=== PATIENT | male | born 1965 | race Caucasian/White ===

== ENCOUNTER → 2016-08-28 | Outpatient (REF) | payer BC ==
[2016-08-28 11:40] LABS: ALBUMIN 4.1 GM/DL (3.2-5.2); ALBUMIN/GLOBULIN RATIO 1.52 (1.00-1.93); ALKALINE PHOSPHATASE 59 U/L (45-117); ALT/SGPT 112 U/L (12-78); ANION GAP 8 MEQ/L (8-16); AST/SGOT 52 U/L (15-37); BILIRUBIN,TOTAL 0.8 MG/DL (0.2-1.0); BLOOD UREA NITROGEN 20 MG/DL (7-18); CALCIUM LEVEL 8.7 MG/DL (8.5-10.1); CARBON DIOXIDE LEVEL 25 MEQ/L (21-32); CHLORIDE LEVEL 107 MEQ/L (98-107); CHOLESTEROL LEVEL 147 MG/DL (<200); CREATININE FOR GFR 0.86 MG/DL (0.70-1.30); GLOMERULAR FILTRATION RATE > 60.0 (>56); GLUCOSE, FASTING 114 MG/DL (70-105); POTASSIUM SERUM 4.4 MEQ/L (3.5-5.1); SODIUM LEVEL 140 MEQ/L (136-145); TOTAL PROTEIN 6.8 GM/DL (6.4-8.2); TRIGLYCERIDES LEVEL 102 MG/DL (<150)
== END ==
LOC: M LABDRAW1 11:11
PROVIDERS: ATTEND Physician Assistant
DX: I25.10 Atherosclerotic heart disease of native coronary artery without angina pectoris (principal); I10 Essential (primary) hypertension; E78.00 Pure hypercholesterolemia, unspecified

== ENCOUNTER → 2016-08-28 | Outpatient (REF) | payer BC | LOC: M SFHCCLAY 07:07 | PROVIDERS: ATTEND Nurse Practitioner | DX: I10 Essential (primary) hypertension (principal); Z12.5 Encounter for screening for malignant neoplasm of prostate | CPT/HCPCS: 83036; G0103 ==

== ENCOUNTER → 2017-03-23 | Outpatient (REF) | payer BC ==
[2017-03-23 11:40] LABS: MEAN CORPUSCULAR HEMOGLOBIN 31.8 pg (27.0-33.0); MEAN CORPUSCULAR HGB CONC 34.5 g/dl (32.0-36.5); MEAN CORPUSCULAR VOLUME 92.3 fl (80.0-96.0); PLATELET COUNT, AUTOMATED 204 10^3/uL (150-450); WHITE BLOOD COUNT 6.8 10^3/uL (4.0-10.0)
[2017-03-23 12:29] LABS: ALBUMIN 4.1 GM/DL (3.2-5.2); ALBUMIN/GLOBULIN RATIO 1.41 (1.00-1.93); ALKALINE PHOSPHATASE 58 U/L (45-117); ALT/SGPT 75 U/L (12-78); ANION GAP 7 MEQ/L (8-16); AST/SGOT 33 U/L (7-37); BILIRUBIN,TOTAL 0.4 MG/DL (0.2-1.0); BLOOD UREA NITROGEN 21 MG/DL (7-18); CARBON DIOXIDE LEVEL 27 MEQ/L (21-32); CHLORIDE LEVEL 105 MEQ/L (98-107); GLOMERULAR FILTRATION RATE > 60.0 (>56); GLUCOSE, FASTING 115 MG/DL (70-105); POTASSIUM SERUM 4.7 MEQ/L (3.5-5.1); SODIUM LEVEL 139 MEQ/L (136-145)
== END ==
LOC: M LABDRAWC 11:27
PROVIDERS: ATTEND Physician Assistant
DX: I25.10 Atherosclerotic heart disease of native coronary artery without angina pectoris (principal); I10 Essential (primary) hypertension; E78.00 Pure hypercholesterolemia, unspecified

== ENCOUNTER → 2017-09-01 | Outpatient (REF) | payer BC ==
[2017-09-01 11:38] LABS: HEMATOCRIT 43.3 % (42.0-52.0); HEMOGLOBIN 14.9 g/dl (13.5-17.5); MEAN CORPUSCULAR HEMOGLOBIN 32.3 pg (27.0-33.0); MEAN CORPUSCULAR HGB CONC 34.4 g/dl (32.0-36.5); MEAN CORPUSCULAR VOLUME 93.7 fl (80.0-96.0); PLATELET COUNT, AUTOMATED 170 10^3/uL (150-450); RED BLOOD COUNT 4.62 10^6/uL (4.30-6.10); RED CELL DISTRIBUTION WIDTH 12.2 % (11.5-14.5)
[2017-09-01 11:58] LABS: ALBUMIN/GLOBULIN RATIO 1.43 (1.00-1.93); ALKALINE PHOSPHATASE 68 U/L (45-117); ALT/SGPT 138 U/L (12-78); ANION GAP 5 MEQ/L (8-16); AST/SGOT 57 U/L (7-37); BILIRUBIN,TOTAL 0.4 MG/DL (0.2-1.0); BLOOD UREA NITROGEN 20 MG/DL (7-18); CALCIUM LEVEL 9.2 MG/DL (8.5-10.1); CARBON DIOXIDE LEVEL 27 MEQ/L (21-32); CHLORIDE LEVEL 108 MEQ/L (98-107); CHOLESTEROL LEVEL 132 MG/DL (<200); CHOLESTEROL RISK RATIO 4.125 (<5); GLOMERULAR FILTRATION RATE > 60.0 (>56); GLUCOSE, FASTING 114 MG/DL (70-100); HDL CHOLESTEROL 32 MG/DL (>40); NON-HDL-C 100 MG/DL; POTASSIUM SERUM 4.5 MEQ/L (3.5-5.1); SODIUM LEVEL 140 MEQ/L (136-145); TOTAL PROTEIN 6.8 GM/DL (6.4-8.2); TRIGLYCERIDES LEVEL 150 MG/DL (<150)
[2017-09-01 12:22] LABS: ESTIMATED AVERAGE GLUCOSE 123 MG/DL (60-110); HEMOGLOBIN A1c 5.9 %
== END ==
LOC: M SFHCCLAY 06:58
DX: I25.10 Atherosclerotic heart disease of native coronary artery without angina pectoris (principal); K21.0 Gastro-esophageal reflux disease with esophagitis; R73.01 Impaired fasting glucose
CPT/HCPCS: 80053

== ENCOUNTER → 2018-02-24 | Outpatient (REF) | payer BC ==
[2018-02-24 11:49] LABS: HEMOGLOBIN 15.1 g/dl (13.5-17.5); MEAN CORPUSCULAR HEMOGLOBIN 32.3 pg (27.0-33.0); MEAN CORPUSCULAR HGB CONC 33.6 g/dl (32.0-36.5); MEAN CORPUSCULAR VOLUME 96.2 fl (80.0-96.0); PLATELET COUNT, AUTOMATED 177 10^3/uL (150-450); RED BLOOD COUNT 4.68 10^6/uL (4.30-6.10); WHITE BLOOD COUNT 7.3 10^3/uL (4.0-10.0)
[2018-02-24 12:19] LABS: ALBUMIN 3.9 GM/DL (3.2-5.2); ALBUMIN/GLOBULIN RATIO 1.56 (1.00-1.93); ALKALINE PHOSPHATASE 67 U/L (45-117); ALT/SGPT 109 U/L (12-78); ANION GAP 6 MEQ/L (8-16); AST/SGOT 49 U/L (7-37); BILIRUBIN,TOTAL 0.4 MG/DL (0.2-1.0); BLOOD UREA NITROGEN 20 MG/DL (7-18); CARBON DIOXIDE LEVEL 27 MEQ/L (21-32); CHLORIDE LEVEL 106 MEQ/L (98-107); CHOLESTEROL LEVEL 158 MG/DL (<200); CHOLESTEROL RISK RATIO 4.388 (<5); CREATININE FOR GFR 0.89 MG/DL (0.70-1.30); FREE T4 0.83 NG/DL (0.76-1.46); GLOMERULAR FILTRATION RATE > 60.0 (>56); GLUCOSE, FASTING 120 MG/DL (70-100); HDL CHOLESTEROL 36 MG/DL (>40); LDL CHOLESTEROL 92 MG/DL (<100); NON-HDL-C 122 MG/DL; POTASSIUM SERUM 4.7 MEQ/L (3.5-5.1); SODIUM LEVEL 139 MEQ/L (136-145); TOTAL PROTEIN 6.4 GM/DL (6.4-8.2); TRIGLYCERIDES LEVEL 149 MG/DL (<150)
[2018-02-24 12:40] LABS: ESTIMATED AVERAGE GLUCOSE 123 MG/DL (60-110); HEMOGLOBIN A1c 5.9 %
[2018-02-24 13:05] LABS: MALB URINE SIEMENS 77.2 MG/L; MAU/CREAT RATIO 59.8 MCG/MG (0.0-30.0)
== END ==
LOC: M SFHCCLAY 07:02
DX: E11.9 Type 2 diabetes mellitus without complications (principal); I25.10 Atherosclerotic heart disease of native coronary artery without angina pectoris; K21.0 Gastro-esophageal reflux disease with esophagitis; I10 Essential (primary) hypertension; E78.5 Hyperlipidemia, unspecified
CPT/HCPCS: 84443

== ENCOUNTER → 2018-09-16 | Outpatient (REF) | payer BC ==
[~2018-09-16] MED LIST: ASPI81TA85 PO; ATOR1TAB21 PO; FLUTISP; METF500T13 PO; NITR0.4S14 SL; OMEP20CA3 PO; RAMI1CAP26 PO; TOPR50TA PO; VALA1TAB2 PO
[2018-09-16 11:38] LABS: BLOOD UREA NITROGEN 20 MG/DL (7-18); CALCIUM LEVEL 9.2 MG/DL (8.5-10.1); CARBON DIOXIDE LEVEL 28 MEQ/L (21-32); CHLORIDE LEVEL 104 MEQ/L (98-107); CREATININE FOR GFR 0.96 MG/DL (0.70-1.30); GLOMERULAR FILTRATION RATE > 60.0 (>56); GLUCOSE, FASTING 107 MG/DL (70-100); POTASSIUM SERUM 4.4 MEQ/L (3.5-5.1); SODIUM LEVEL 140 MEQ/L (136-145)
== END ==
LOC: M LABDRAWC 11:14
PROVIDERS: ATTEND Physician Assistant
DX: E78.00 Pure hypercholesterolemia, unspecified (principal)

== ENCOUNTER → 2019-03-14 | Outpatient (REF) | payer BC ==
[~2019-03-14] MED LIST changes: -OMEP20CA3 PO; +OMEP20CA4 PO
[2019-03-14 12:42] LABS: HEMATOCRIT 45.9 % (42.0-52.0); HEMOGLOBIN 15.7 g/dl (13.5-17.5); MEAN CORPUSCULAR HEMOGLOBIN 32.4 pg (27.0-33.0); MEAN CORPUSCULAR HGB CONC 34.2 g/dl (32.0-36.5); MEAN CORPUSCULAR VOLUME 94.6 fl (80.0-96.0); PLATELET COUNT, AUTOMATED 188 10^3/uL (150-450); RED BLOOD COUNT 4.85 10^6/uL (4.30-6.10); WHITE BLOOD COUNT 8.2 10^3/uL (4.0-10.0)
[2019-03-14 12:51] LABS: ALBUMIN 3.9 GM/DL (3.2-5.2); ALT/SGPT 108 U/L (12-78); BILIRUBIN,TOTAL 0.8 MG/DL (0.2-1.0); BLOOD UREA NITROGEN 19 MG/DL (7-18); CALCIUM LEVEL 9.1 MG/DL (8.5-10.1); CARBON DIOXIDE LEVEL 26 MEQ/L (21-32); CHLORIDE LEVEL 105 MEQ/L (98-107); CHOLESTEROL LEVEL 177 MG/DL (<200); CHOLESTEROL RISK RATIO 4.425 (<5); CREATININE FOR GFR 1.07 MG/DL (0.70-1.30); GLOMERULAR FILTRATION RATE > 60.0 (>56); GLUCOSE, FASTING 131 MG/DL (70-100); HDL CHOLESTEROL 40 MG/DL (>40); LDL CHOLESTEROL 102 MG/DL (<100); NON-HDL-C 137 MG/DL; POTASSIUM SERUM 4.7 MEQ/L (3.5-5.1); SODIUM LEVEL 139 MEQ/L (136-145); TRIGLYCERIDES LEVEL 174 MG/DL (<150)
[2019-03-14 13:18] LABS: MALB URINE SIEMENS 52.9 MG/L; MAU/CREAT RATIO 24.2 MCG/MG (0.0-30.0)
[2019-03-14 13:58] LABS: HEMOGLOBIN A1c 6.1 %
== END ==
LOC: M SFHCCLAY 07:00
PROVIDERS: ATTEND Nurse Practitioner Family
DX: I25.10 Atherosclerotic heart disease of native coronary artery without angina pectoris (principal); K21.0 Gastro-esophageal reflux disease with esophagitis; I10 Essential (primary) hypertension; E78.5 Hyperlipidemia, unspecified; E11.9 Type 2 diabetes mellitus without complications

== ENCOUNTER → 2019-09-21 | Outpatient (REF) | payer BC ==
[~2019-09-21] MED LIST changes: +OMEP1CAP73 PO; -OMEP20CA4 PO; -VALA1TAB2 PO; +VALA1TAB5 PO
[2019-09-21 16:39] LABS: ALBUMIN 3.9 GM/DL (3.2-5.2); ALT/SGPT 127 U/L (12-78); BILIRUBIN,TOTAL 0.7 MG/DL (0.2-1.0); BLOOD UREA NITROGEN 15 MG/DL (7-18); CARBON DIOXIDE LEVEL 28 MEQ/L (21-32); CHLORIDE LEVEL 105 MEQ/L (98-107); CHOLESTEROL LEVEL 164 MG/DL (<200); CHOLESTEROL RISK RATIO 4.432 (<5); CREATININE FOR GFR 0.91 MG/DL (0.70-1.30); FREE T4 0.93 NG/DL (0.76-1.46); GLOMERULAR FILTRATION RATE > 60.0 (>56); GLUCOSE, FASTING 125 MG/DL (70-100); HDL CHOLESTEROL 37 MG/DL (>40); LDL CHOLESTEROL 104 MG/DL (<100); NON-HDL-C 127 MG/DL; POTASSIUM SERUM 4.5 MEQ/L (3.5-5.1); SODIUM LEVEL 139 MEQ/L (136-145); TOTAL PROTEIN 6.9 GM/DL (6.4-8.2); TRIGLYCERIDES LEVEL 117 MG/DL (<150)
[2019-09-21 17:34] LABS: HEMOGLOBIN A1c 6.4 %
== END ==
LOC: M SFHCCLAY 08:05
PROVIDERS: ATTEND Nurse Practitioner Family
DX: I25.10 Atherosclerotic heart disease of native coronary artery without angina pectoris (principal); K21.0 Gastro-esophageal reflux disease with esophagitis; I10 Essential (primary) hypertension; E78.5 Hyperlipidemia, unspecified; E11.9 Type 2 diabetes mellitus without complications

== ENCOUNTER → 2020-03-21 | Outpatient (REF) | payer BC ==
[~2020-03-21] MED LIST changes: -ASPI81TA85 PO; +ASPI81TA86 PO
[2020-03-21 12:39] LABS: ALBUMIN 4.1 GM/DL (3.2-5.2); ALT/SGPT 68 U/L (12-78); BILIRUBIN,TOTAL 0.5 MG/DL (0.2-1.0); BLOOD UREA NITROGEN 20 MG/DL (7-18); CALCIUM LEVEL 9.2 MG/DL (8.5-10.1); CARBON DIOXIDE LEVEL 26 MEQ/L (21-32); CHLORIDE LEVEL 105 MEQ/L (98-107); CREATININE FOR GFR 1.24 MG/DL (0.70-1.30); GLOMERULAR FILTRATION RATE > 60.0 (>56); GLUCOSE, FASTING 120 MG/DL (70-100); POTASSIUM SERUM 4.8 MEQ/L (3.5-5.1); SODIUM LEVEL 137 MEQ/L (136-145); TOTAL PROTEIN 7.3 GM/DL (6.4-8.2)
[2020-03-21 18:32] LABS: HEMOGLOBIN A1c 6.2 %
== END ==
LOC: M SFHCCLAY 08:36
PROVIDERS: ATTEND Nurse Practitioner Family
DX: I25.10 Atherosclerotic heart disease of native coronary artery without angina pectoris (principal); K21.9 Gastro-esophageal reflux disease without esophagitis; I10 Essential (primary) hypertension; E78.5 Hyperlipidemia, unspecified; E11.9 Type 2 diabetes mellitus without complications

== ENCOUNTER → 2020-05-17 | Outpatient (REF) | payer BC ==
[2020-05-17 11:45] LABS: BLOOD UREA NITROGEN 21 MG/DL (7-18); CALCIUM LEVEL 9.1 MG/DL (8.5-10.1); CARBON DIOXIDE LEVEL 30 MEQ/L (21-32); CHLORIDE LEVEL 103 MEQ/L (98-107); CREATININE FOR GFR 1.01 MG/DL (0.70-1.30); GLOMERULAR FILTRATION RATE > 60.0 (>56); GLUCOSE, FASTING 124 MG/DL (70-100); POTASSIUM SERUM 4.9 MEQ/L (3.5-5.1); SODIUM LEVEL 138 MEQ/L (136-145)
== END ==
LOC: M SFHCCLAY 07:09
PROVIDERS: ATTEND Nurse Practitioner Family
DX: E11.9 Type 2 diabetes mellitus without complications (principal)

== ENCOUNTER → 2020-11-15 | Outpatient (REF) | payer BC ==
[2020-11-15 13:05] LABS: ALBUMIN 4.2 GM/DL (3.2-5.2); ALT/SGPT 107 U/L (12-78); BILIRUBIN,TOTAL 0.8 MG/DL (0.2-1.0); BLOOD UREA NITROGEN 14 MG/DL (7-18); CALCIUM LEVEL 8.9 MG/DL (8.5-10.1); CARBON DIOXIDE LEVEL 26 MEQ/L (21-32); CHLORIDE LEVEL 106 MEQ/L (98-107); CHOLESTEROL LEVEL 146 MG/DL (<200); CHOLESTEROL RISK RATIO 4.055 (<5); CREATININE FOR GFR 0.92 MG/DL (0.70-1.30); GLOMERULAR FILTRATION RATE > 60.0 (>56); GLUCOSE, FASTING 128 MG/DL (70-100); HDL CHOLESTEROL 36 MG/DL (>40); LDL CHOLESTEROL 87 MG/DL (<100); NON-HDL-C 110 MG/DL; POTASSIUM SERUM 4.7 MEQ/L (3.5-5.1); SODIUM LEVEL 139 MEQ/L (136-145); TOTAL PROTEIN 6.7 GM/DL (6.4-8.2); TRIGLYCERIDES LEVEL 113 MG/DL (<150)
== END ==
LOC: M SFHCCLAY 06:59
PROVIDERS: ATTEND Nurse Practitioner Family
DX: I25.10 Atherosclerotic heart disease of native coronary artery without angina pectoris (principal); K21.00 Gastro-esophageal reflux disease with esophagitis, without bleeding; I10 Essential (primary) hypertension; E78.5 Hyperlipidemia, unspecified; E11.9 Type 2 diabetes mellitus without complications

== ENCOUNTER → 2021-05-19 | Outpatient (REF) | payer BC ==
[2021-05-19 12:21] LABS: ALBUMIN 3.7 GM/DL (3.2-5.2); ALT/SGPT 91 U/L (12-78); BILIRUBIN,TOTAL 0.4 MG/DL (0.2-1.0); BLOOD UREA NITROGEN 16 MG/DL (7-18); CALCIUM LEVEL 9.1 MG/DL (8.5-10.1); CARBON DIOXIDE LEVEL 28 MEQ/L (21-32); CHLORIDE LEVEL 105 MEQ/L (98-107); CREATININE FOR GFR 0.91 MG/DL (0.70-1.30); FREE T4 0.91 NG/DL (0.76-1.46); GLOMERULAR FILTRATION RATE > 60.0 (>56); GLUCOSE, FASTING 141 MG/DL (70-100); POTASSIUM SERUM 4.8 MEQ/L (3.5-5.1); SODIUM LEVEL 139 MEQ/L (136-145); TOTAL PROTEIN 6.9 GM/DL (6.4-8.2)
[2021-05-19 12:46] LABS: HEMOGLOBIN A1c 6.2 %
== END ==
LOC: M SFHCCLAY 06:58
PROVIDERS: ATTEND Nurse Practitioner Family
DX: I25.10 Atherosclerotic heart disease of native coronary artery without angina pectoris (principal); K21.00 Gastro-esophageal reflux disease with esophagitis, without bleeding; I10 Essential (primary) hypertension; E78.5 Hyperlipidemia, unspecified; E11.9 Type 2 diabetes mellitus without complications

== ENCOUNTER → 2021-11-14 | Outpatient (REF) | payer BC ==
[2021-11-14 12:10] LABS: HEMOGLOBIN A1c 5.9 %
[2021-11-14 12:24] LABS: ALT/SGPT 124 U/L (12-78); BILIRUBIN,TOTAL 1.1 MG/DL (0.2-1.0); BLOOD UREA NITROGEN 18 MG/DL (7-18); CALCIUM LEVEL 9.1 MG/DL (8.5-10.1); CARBON DIOXIDE LEVEL 29 MEQ/L (21-32); CHLORIDE LEVEL 104 MEQ/L (98-107); CREATININE FOR GFR 1.03 MG/DL (0.70-1.30); GLOMERULAR FILTRATION RATE > 60.0 (>56); GLUCOSE, FASTING 143 MG/DL (70-100); POTASSIUM SERUM 4.9 MEQ/L (3.5-5.1); SODIUM LEVEL 137 MEQ/L (136-145); TOTAL PROTEIN 7.1 GM/DL (6.4-8.2)
== END ==
LOC: M SFHCCLAY 06:59
PROVIDERS: ATTEND Nurse Practitioner Family
DX: I25.10 Atherosclerotic heart disease of native coronary artery without angina pectoris (principal); I10 Essential (primary) hypertension; E11.9 Type 2 diabetes mellitus without complications

== ENCOUNTER → 2022-05-18 | Outpatient (REF) | payer BC ==
[2022-05-18 11:40] LABS: BASO % 0.5 % (0.0-1.0); EOS # 0.1 10^3/uL (0.0-0.5); EOS % 1.1 % (0.0-3.0); HEMATOCRIT 48.9 % (42.0-52.0); HEMOGLOBIN 15.9 g/dl (13.5-17.5); LYMPH # 1.4 10^3/uL (1.5-5.0); LYMPH % 17.1 % (24.0-44.0); MEAN CORPUSCULAR HEMOGLOBIN 31.6 pg (27.0-33.0); MEAN CORPUSCULAR HGB CONC 32.5 g/dl (32.0-36.5); MEAN CORPUSCULAR VOLUME 97.2 fl (80.0-96.0); MONO # 0.7 10^3/uL (0.0-0.8); MONO % 8.9 % (2.0-8.0); NEUTROPHILS # 5.7 10^3/uL (1.5-8.5); NEUTROPHILS % 71.7 % (36.0-66.0); PLATELET COUNT, AUTOMATED 147 10^3/uL (150-450); RED BLOOD COUNT 5.03 10^6/uL (4.30-6.10)
[2022-05-18 11:50] LABS: HEMOGLOBIN A1c 6.4 % (4.0-6.0)
[2022-05-18 12:00] LABS: CREATININE, URINE 98.4 MG/DL; MAU/CREAT RATIO 29.4 MCG/MG (0.0-30.0)
[2022-05-18 12:02] LABS: ALBUMIN 4.2 G/DL (3.2-5.2); ALKALINE PHOSPHATASE 63 U/L (46-116); ALT/SGPT 116 U/L (7.0-40); AST/SGOT 72 U/L (<34); BILIRUBIN,TOTAL 0.7 MG/DL (0.3-1.2); BLOOD UREA NITROGEN 21 MG/DL (9-23); CALCIUM LEVEL 9.4 MG/DL (8.5-10.1); CARBON DIOXIDE LEVEL 26 MMOL/L (20-31); CHLORIDE LEVEL 103 MMOL/L (98-107); CHOLESTEROL LEVEL 167 MG/DL (<200); CREATININE FOR GFR 0.83 MG/DL (0.70-1.30); GLOMERULAR FILTRATION RATE > 60.0 (>56); GLUCOSE, FASTING 133 MG/DL (60-100); HDL CHOLESTEROL 39.7 MG/DL (>40); LDL CHOLESTEROL 100.1 MG/DL (<100); NON-HDL-C 127 MG/DL; POTASSIUM SERUM 4.7 MMOL/L (3.5-5.1); SODIUM LEVEL 138 MMOL/L (136-145); TOTAL PROTEIN 7.1 G/DL (5.7-8.2); TRIGLYCERIDES LEVEL 136 MG/DL (<150)
[2022-05-18 12:04] LABS: FREE T4 1.01 NG/DL (0.89-1.76)
[2022-05-18 12:05] LABS: THYROID STIMULATING HORMONE 6.896 uIU/ML (0.55-4.78)
== END ==
LOC: M SFHCCLAY 07:10
PROVIDERS: ATTEND Nurse Practitioner Family
DX: I25.10 Atherosclerotic heart disease of native coronary artery without angina pectoris (principal); K21.00 Gastro-esophageal reflux disease with esophagitis, without bleeding; I10 Essential (primary) hypertension; E78.5 Hyperlipidemia, unspecified; E11.9 Type 2 diabetes mellitus without complications

== ENCOUNTER → 2022-11-13 | Outpatient (REF) | payer BC ==
[~2022-11-13] MED LIST changes: +FLUT50SP17; -FLUTISP
[2022-11-13 11:39] LABS: HEMOGLOBIN A1c 6.9 % (4.0-6.0)
[2022-11-13 11:46] LABS: ALKALINE PHOSPHATASE 76 U/L (46-116); ALT/SGPT 101 U/L (7.0-40); AST/SGOT 45 U/L (<34); BILIRUBIN,TOTAL 0.7 MG/DL (0.3-1.2); BLOOD UREA NITROGEN 16 MG/DL (9-23); CALCIUM LEVEL 8.9 MG/DL (8.5-10.1); CARBON DIOXIDE LEVEL 23 MMOL/L (20-31); CHLORIDE LEVEL 106 MMOL/L (98-107); CREATININE FOR GFR 0.78 MG/DL (0.70-1.30); GLOMERULAR FILTRATION RATE > 60.0 (>56); GLUCOSE, FASTING 142 MG/DL (60-100); POTASSIUM SERUM 4.5 MMOL/L (3.5-5.1); SODIUM LEVEL 139 MMOL/L (136-145); TOTAL PROTEIN 6.8 G/DL (5.7-8.2)
== END ==
LOC: M SFHCCLAY 07:03
PROVIDERS: ATTEND Nurse Practitioner Family
DX: R73.01 Impaired fasting glucose (principal); E78.5 Hyperlipidemia, unspecified; I10 Essential (primary) hypertension; I25.10 Atherosclerotic heart disease of native coronary artery without angina pectoris; Z12.5 Encounter for screening for malignant neoplasm of prostate
CPT/HCPCS: 80053; 83036; G0103

== ENCOUNTER → 2023-02-19 | Outpatient (REF) | payer BC ==
[2023-02-19 13:09] LABS: ALBUMIN 4.2 G/DL (3.2-5.2); ALKALINE PHOSPHATASE 61 U/L (46-116); ALT/SGPT 102 U/L (7.0-40); AST/SGOT 56 U/L (<34); BLOOD UREA NITROGEN 20 MG/DL (9-23); CALCIUM LEVEL 9.5 MG/DL (8.3-10.6); CARBON DIOXIDE LEVEL 26 MMOL/L (20-31); CHLORIDE LEVEL 105 MMOL/L (98-107); CREATININE FOR GFR 1.01 MG/DL (0.70-1.30); GLOMERULAR FILTRATION RATE > 60.0 (>49); GLUCOSE, FASTING 120 MG/DL (74-106); POTASSIUM SERUM 4.8 MMOL/L (3.5-5.1); SODIUM LEVEL 141 MMOL/L (136-145)
[2023-02-19 13:19] LABS: HEMOGLOBIN A1c 5.9 % (4.0-6.0)
== END ==
LOC: M SFHCCLAY 07:04
PROVIDERS: ATTEND Nurse Practitioner Family
DX: I25.10 Atherosclerotic heart disease of native coronary artery without angina pectoris (principal); I10 Essential (primary) hypertension; E78.5 Hyperlipidemia, unspecified; R73.01 Impaired fasting glucose

== ENCOUNTER → 2023-03-08 | Outpatient (CLI) | payer BC | LOC: M RAD 06:45 | PROVIDERS: ATTEND Nurse Practitioner Family | DX: R79.89 Other specified abnormal findings of blood chemistry (principal); R16.0 Hepatomegaly, not elsewhere classified; K76.0 Fatty (change of) liver, not elsewhere classified ==

== ENCOUNTER 2023-04-02 06:42 | Day surgery (SDC) | payer BC ==
[~2023-04-02] VITALS: Ht 175.3 cm; Wt 120.8 kg
[~2023-04-02 06:42] MED LIST changes: +ECOT81TA5 PO; +FARX1TAB3 PO; -FLUT50SP17; +FLUTISP; +NS 1,000 ML IV ONE
[2023-04-02] MEDS ORDERED: propofoL 200 MG/20 ML VIAL As Ordered ONE (07:35)
[2023-04-02 07:59] VITALS: TEMP 98
[2023-04-02 08:15] VITALS: BP 122/57; O2SAT 94
== END 2023-04-02 08:30 | disposition home or self-care (01) ==
LOC: M OPP 06:42
PROVIDERS: ATTEND Internal Medicine Gastroenterology
DX: Z12.11 Encounter for screening for malignant neoplasm of colon (principal); Z86.010 Personal history of colon polyps; D12.6 Benign neoplasm of colon, unspecified; K64.8 Other hemorrhoids; K57.30 Diverticulosis of large intestine without perforation or abscess without bleeding; Z87.891 Personal history of nicotine dependence; I25.119 Atherosclerotic heart disease of native coronary artery with unspecified angina pectoris; E11.9 Type 2 diabetes mellitus without complications; G47.9 Sleep disorder, unspecified; Z86.74 Personal history of sudden cardiac arrest; Z95.5 Presence of coronary angioplasty implant and graft; Z79.02 Long term (current) use of antithrombotics/antiplatelets; Z79.51 Long term (current) use of inhaled steroids; Z79.82 Long term (current) use of aspirin; Z79.84 Long term (current) use of oral hypoglycemic drugs; Z79.83 Long term (current) use of bisphosphonates; Z79.899 Other long term (current) drug therapy; Z88.0 Allergy status to penicillin; Z88.1 Allergy status to other antibiotic agents

== ENCOUNTER → 2023-04-29 | Outpatient (REF) | payer BC ==
[~2023-04-29] MED LIST changes: -NS 1,000 ML IV ONE
[2023-04-29 11:57] LABS: CHOLESTEROL RISK RATIO 4.44 (<5); HDL CHOLESTEROL 40.9 MG/DL (>40); LDL CHOLESTEROL 109.9 MG/DL (<100); NON-HDL-C 141.1 MG/DL
== END ==
LOC: M LABDRAWC 11:31
PROVIDERS: ATTEND Physician Assistant
DX: E78.00 Pure hypercholesterolemia, unspecified (principal)

== ENCOUNTER → 2023-08-20 | Outpatient (REF) | payer BC ==
[~2023-08-20] MED LIST changes: +RAMI10CA64 PO; -RAMI1CAP26 PO
[2023-08-20 12:30] LABS: HEMATOCRIT 48.6 % (42.0-52.0); HEMOGLOBIN 15.9 g/dl (13.5-17.5); MEAN CORPUSCULAR HEMOGLOBIN 32.1 pg (27.0-33.0); MEAN CORPUSCULAR HGB CONC 32.7 g/dl (32.0-36.5); PLATELET COUNT, AUTOMATED 133 10^3/uL (150-450); RED BLOOD COUNT 4.96 10^6/uL (4.30-6.10); WHITE BLOOD COUNT 7.5 10^3/uL (4.0-10.0)
[2023-08-20 12:59] LABS: HEMOGLOBIN A1c 6.7 % (4.0-6.0)
[2023-08-20 13:00] LABS: THYROID STIMULATING HORMONE 7.192 uIU/ML (0.55-4.78)
[2023-08-20 13:01] LABS: ALBUMIN 4.2 G/DL (3.2-5.2); ALKALINE PHOSPHATASE 72 U/L (46-116); ALT/SGPT 116 U/L (7.0-40); AST/SGOT 65 U/L (<34); BILIRUBIN,TOTAL 0.9 MG/DL (0.3-1.2); BLOOD UREA NITROGEN 19 MG/DL (9-23); CALCIUM LEVEL 9.3 MG/DL (8.3-10.6); CARBON DIOXIDE LEVEL 25 MMOL/L (20-31); CHLORIDE LEVEL 103 MMOL/L (98-107); CHOLESTEROL RISK RATIO 4.49 (<5); CREATININE FOR GFR 0.82 MG/DL (0.70-1.30); CREATININE, URINE 108.2 MG/DL; FREE T4 0.97 NG/DL (0.89-1.76); GLOMERULAR FILTRATION RATE > 60.0 (>49); GLUCOSE, FASTING 136 MG/DL (74-106); HDL CHOLESTEROL 36.5 MG/DL (>40); LDL CHOLESTEROL 93.5 MG/DL (<100); MAU/CREAT RATIO 129.3 MCG/MG (0.0-30.0); NON-HDL-C 127.5 MG/DL; POTASSIUM SERUM 4.8 MMOL/L (3.5-5.1); PSA SCREENING 2.42 NG/ML (< 4.00); SODIUM LEVEL 139 MMOL/L (136-145); TOTAL PROTEIN 6.9 G/DL (5.7-8.2)
== END ==
LOC: M SFHCCLAY 06:59
PROVIDERS: ATTEND Nurse Practitioner Family
DX: I25.10 Atherosclerotic heart disease of native coronary artery without angina pectoris (principal); I10 Essential (primary) hypertension; E78.5 Hyperlipidemia, unspecified; R73.01 Impaired fasting glucose; Z12.5 Encounter for screening for malignant neoplasm of prostate
CPT/HCPCS: 80053; 80061; 82043; 83036; 84439; 84443; 85027; G0103

== ENCOUNTER → 2023-10-01 | Outpatient (REF) | payer BC ==
[2023-10-01 12:45] LABS: BASO % 0.4 % (0.0-1.0); EOS # 0.1 10^3/uL (0.0-0.5); EOS % 1.5 % (0.0-3.0); HEMOGLOBIN 15.9 g/dl (13.5-17.5); LYMPH # 1.3 10^3/uL (1.5-5.0); LYMPH % 18.5 % (24.0-44.0); MEAN CORPUSCULAR HEMOGLOBIN 32.3 pg (27.0-33.0); MEAN CORPUSCULAR HGB CONC 33.8 g/dl (32.0-36.5); MEAN CORPUSCULAR VOLUME 95.5 fl (80.0-96.0); MONO # 0.6 10^3/uL (0.0-0.8); MONO % 8.3 % (2.0-8.0); NEUTROPHILS # 4.9 10^3/uL (1.5-8.5); NEUTROPHILS % 70.7 % (36.0-66.0); PLATELET COUNT, AUTOMATED 142 10^3/uL (150-450); RED BLOOD COUNT 4.92 10^6/uL (4.30-6.10); WHITE BLOOD COUNT 6.9 10^3/uL (4.0-10.0)
== END ==
LOC: M SFHCCLAY 07:09
PROVIDERS: ATTEND Nurse Practitioner Family
DX: D69.6 Thrombocytopenia, unspecified (principal)

== ENCOUNTER → 2024-03-03 | Outpatient (REF) | payer BC ==
[2024-03-03 12:14] LABS: ALBUMIN 3.8 G/DL (3.2-5.2); ALKALINE PHOSPHATASE 90 U/L (40-129); ALT/SGPT 74 U/L (7.0-40); AST/SGOT 40 U/L (<34); BILIRUBIN,TOTAL 0.8 MG/DL (0.3-1.2); BLOOD UREA NITROGEN 13 MG/DL (9-23); CALCIUM LEVEL 9.2 MG/DL (8.3-10.6); CARBON DIOXIDE LEVEL 27 MMOL/L (20-31); CHLORIDE LEVEL 105 MMOL/L (98-107); CHOLESTEROL LEVEL 116 MG/DL (<200); CHOLESTEROL RISK RATIO 3.13 (<5); CREATININE FOR GFR 0.67 MG/DL (0.70-1.30); GLOMERULAR FILTRATION RATE > 60.0 (>49); GLUCOSE, FASTING 99 MG/DL (74-106); POTASSIUM SERUM 4.4 MMOL/L (3.5-5.1); SODIUM LEVEL 139 MMOL/L (136-145); TOTAL PROTEIN 6.6 G/DL (5.7-8.2); TRIGLYCERIDES LEVEL 85 MG/DL (<150)
[2024-03-03 12:35] LABS: HEMOGLOBIN A1c 5.1 % (4.0-6.0)
== END ==
LOC: M SFHCCLAY 07:05
PROVIDERS: ATTEND Nurse Practitioner Family
DX: I25.10 Atherosclerotic heart disease of native coronary artery without angina pectoris (principal); I10 Essential (primary) hypertension; E78.5 Hyperlipidemia, unspecified; R73.01 Impaired fasting glucose; E78.2 Mixed hyperlipidemia

== ENCOUNTER → 2024-09-04 | Outpatient (REF) | payer BC ==
[2024-09-04 13:52] LABS: BASO % 0.4 % (0.0-1.0); EOS # 0.1 10^3/uL (0.0-0.5); EOS % 0.9 % (0.0-3.0); HEMATOCRIT 46.5 % (42.0-52.0); HEMOGLOBIN 15.8 g/dl (13.5-17.5); LYMPH # 1.5 10^3/uL (1.5-5.0); LYMPH % 18.6 % (24.0-44.0); MEAN CORPUSCULAR HEMOGLOBIN 31.9 pg (27.0-33.0); MEAN CORPUSCULAR VOLUME 93.9 fl (80.0-96.0); MONO # 0.6 10^3/uL (0.0-0.8); MONO % 7.2 % (2.0-8.0); NEUTROPHILS # 5.8 10^3/uL (1.5-8.5); NEUTROPHILS % 72.3 % (36.0-66.0); PLATELET COUNT, AUTOMATED 153 10^3/uL (150-450); RED BLOOD COUNT 4.95 10^6/uL (4.30-6.10); WHITE BLOOD COUNT 8.1 10^3/uL (4.0-10.0)
[2024-09-04 13:57] LABS: ALBUMIN 4.1 G/DL (3.2-5.2); ALKALINE PHOSPHATASE 62 U/L (40-129); ALT/SGPT 39 U/L (7.0-40); AST/SGOT 24 U/L (<34); BILIRUBIN,TOTAL 0.8 MG/DL (0.3-1.2); BLOOD UREA NITROGEN 17 MG/DL (9-23); CALCIUM LEVEL 9.1 MG/DL (8.3-10.6); CARBON DIOXIDE LEVEL 27 MMOL/L (20-31); CHLORIDE LEVEL 105 MMOL/L (98-107); CHOLESTEROL LEVEL 148 MG/DL (<200); CHOLESTEROL RISK RATIO 3.51 (<5); CREATININE FOR GFR 0.72 MG/DL (0.70-1.30); GLOMERULAR FILTRATION RATE > 90.0 (>49); GLUCOSE, FASTING 106 MG/DL (74-106); HDL CHOLESTEROL 42.1 MG/DL (>40); LDL CHOLESTEROL 83.7 MG/DL (<100); NON-HDL-C 105.9 MG/DL; POTASSIUM SERUM 4.4 MMOL/L (3.5-5.1); SODIUM LEVEL 139 MMOL/L (136-145); TOTAL PROTEIN 6.6 G/DL (5.7-8.2); TRIGLYCERIDES LEVEL 111 MG/DL (<150)
[2024-09-04 13:59] LABS: FREE T4 0.99 NG/DL (0.89-1.76)
[2024-09-04 14:14] LABS: HEMOGLOBIN A1c 5.2 % (4.0-6.0)
[2024-09-04 14:16] LABS: CREATININE, URINE 118.2 MG/DL; MAU/CREAT RATIO 8.4 MCG/MG (0.0-30.0)
== END ==
LOC: M SFHCCLAY 06:58
PROVIDERS: ATTEND Nurse Practitioner Family
DX: D69.6 Thrombocytopenia, unspecified (principal); I10 Essential (primary) hypertension; I25.10 Atherosclerotic heart disease of native coronary artery without angina pectoris; E78.5 Hyperlipidemia, unspecified; R73.01 Impaired fasting glucose; E78.2 Mixed hyperlipidemia; Z12.5 Encounter for screening for malignant neoplasm of prostate
CPT/HCPCS: 80053; 80061; 82043; 83036; 84439; 84443; 85025; G0103